=== PATIENT | male | born 1985 | race Two or more races ===

== ENCOUNTER 2018-02-23 10:28 | Emergency (ER) | payer OTHER ==
--- NOTE | 2018-02-23 10:37 | CPEKG ---
Heart Rate: 90 RR Interval: 667 P-R Interval: 168 QRSD Interval: 86 QT Interval: 364 QTC Interval: 446 P Pelican: 54 QRS Pelican: 39 T Wave Pelican: 23 EKG Severity - NORMAL ECG - EKG Impression: SINUS RHYTHM Electronically Signed By: Marck Trejo 23-Feb-2018 10:39:50
--- NOTE | 2018-02-23 10:39 | EDPHY ---
H & P Stated Complaint: Rapid HR, SOB, shaky since 0600 today. Time Seen by Provider: 02/23/18 10:33 HPI/ROS: CHIEF COMPLAINT: Rapid heart beat HISTORY OF PRESENT ILLNESS: Patient is a 33-year-old man with no significant past medical history who comes to the emergency department complaining significant stressors in his life recently surrounding his family situation. 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 No shortness of breath or dizziness or diaphoresis. He denies any stimulant medications or supplements. He did drink yesterday but not today. No vomiting. His symptoms are now improving. REVIEW OF SYSTEMS: Constitutional: denies: chills, fever, recent illness, recent injury EENTM: denies: blurred vision, double vision, nose congestion Respiratory: denies: cough, shortness of breath Cardiac: See PI denies: chest pain, irregular heart rate, l Gastrointestinal/Abdominal: denies: abdominal pain, diarrhea, nausea, vomiting, blood streaked stools Genitourinary: denies: dysuria, frequency, hematuria, pain Musculoskeletal: denies: joint pain, muscle pain Skin: denies: lesions, rash, jaundice, bruising Neurological: denies: headache, numbness, paresthesia, tingling, dizziness, weakness Hematologic/Lymphatic: denies: blood clots, easy bleeding, easy bruising Immunologic/allergic: denies: HIV/AIDS, transplant EXAM: GENERAL: Well-appearing, well-nourished and in no acute distress. HEAD: Atraumatic, normocephalic. EYES: Pupils equal round and reactive to light, extraocular movements intact, sclera anicteric, conjunctiva are normal. ENT: TMs normal, nares patent, oropharynx clear without exudates. Moist mucous membranes. NECK: Normal range of motion, supple without lymphadenopathy or JVD. LUNGS: Breath sounds clear to auscultation bilaterally and equal. No wheezes rales or rhonchi. HEART: Regular rate and rhythm without murmurs, rubs or gallops. ABDOMEN: Soft, nontender, normoactive bowel sounds. No guarding, no rebound. No masses appreciated. BACK: No CVA tenderness, no spinal tenderness, step-offs or deformities EXTREMITIES: Normal range of motion, no pitting or edema. No clubbing or cyanosis. NEUROLOGICAL: Cranial nerves II through XII grossly intact. Normal speech, normal gait. 5/5 strength, normal movement in all extremities, normal sensation PSYCH: Normal mood, normal affect. SKIN: Warm, dry, normal turgor, no visible rashes or lesions. Source: Patient Exam Limitations: No limitations - Personal History Current Tetanus Diphtheria and Acellular Pertussis (TDAP): Yes Tetanus Vaccine Date: within 10 years - Medical/Surgical History Hx Asthma: No Hx Chronic Respiratory Disease: No Hx Diabetes: No Hx Cardiac Disease: No Hx Renal Disease: No Hx Cirrhosis: No Hx Alcoholism: No Hx HIV/AIDS: No Hx Splenectomy or Spleen Trauma: No Other PMH: R knee surgery, smokes vape - Family History Significant Family History: No pertinent family hx - Social History Smoking Status: Current every day smoker Alcohol Use: Sober Drug Use: None Constitutional: Initial Vital Signs Temperature (C) 36.8 C 02/23/18 10:30 Heart Rate 96 02/23/18 10:30 Respiratory Rate 16 02/23/18 10:30 Blood Pressure 111/87 H 02/23/18 10:30 O2 Sat (%) 100 02/23/18 10:30 O2 Delivery Mode Room Air Allergies/Adverse Reactions: No Known Allergies Allergy (Verified 02/23/18 10:36) Home Medications: Medication Instructions Recorded NK [No Known Home Meds] 02/23/18 Medical Decision Making - Diagnostics EKG Interpretation: An EKG obtained and was read and documented in trace view. Please see trace view for full reading and report. Sinus rhythm, no acute ischemic changes ED Course/Re-evaluation: The patient seems to be primarily reacting to stress with family situation. He is reassured by her vital signs and EKG. Will continue to observe. 11:35 a.m. the patient continues to do well. His currently asymptomatic. We discussed stress and anxiety. I discouraged caffeine or stimulants. His friend is here with him. They are eager to go home. They declined further workup or testing at this time. Differential Diagnosis: Partial list of the Differential diagnosis considered include but were not limited to; anxiety, stress reaction, arrhythmia and although unlikely based on the history and physical exam, I also considered electrolyte abnormality trauma, infection. I discussed these differential diagnoses and the plan with the patient as well as the usual and expected course. The patient understands that the diagnosis is provisional and that in medicine we are not always correct and that further workup is often warranted. Usual and customary warnings were given. All of the patient's questions were answered. The patient was instructed to return to the emergency department should the symptoms at all worsen or return, otherwise to followup with the physician as we discussed. Departure - Departure Disposition: Home, Routine, Self-Care Clinical Impression: Stress reaction Condition: Fair Instructions: Stress (ED) Referrals: MD JULIA [Other] - As per Instructions
[2018-02-23 11:57] VITALS: BP 100/70
== END 2018-02-23 11:41 | disposition home or self-care (01) ==
LOC: CED 10:28
DX: F43.9 Reaction to severe stress, unspecified (principal); F17.200 Nicotine dependence, unspecified, uncomplicated